=== PATIENT | female | born 1980 | race Caucasian/White ===

== ENCOUNTER 2025-02-20 14:44 | Outpatient (CLI) | payer BC, SELFPAY ==
[2025-02-23 03:51] LABS: HPV Source Cervix; HPV, High Risk by TMA Not Detected
== END 2025-02-20 14:45 | disposition home or self-care (01) ==
PROVIDERS: PCP Family Medicine; Visit Provider Physician Assistant
DX: Z12.4 Encounter for screening for malignant neoplasm of cervix (principal); Z11.51 Encounter for screening for human papillomavirus (HPV)
CPT/HCPCS: 87624; 87625; 88141; 88142

== ENCOUNTER 2025-03-01 07:32 | Outpatient (CLI) | payer BC, SELFPAY | END 2025-03-01 07:33 | disposition home or self-care (01) | LOC: NFLDREF 03-04 08:43 | PROVIDERS: PCP Family Medicine; Referring Provider Family Medicine; Visit Provider Physician Assistant | DX: F41.8 Other specified anxiety disorders (principal); Z13.6 Encounter for screening for cardiovascular disorders; Z13.1 Encounter for screening for diabetes mellitus | CPT/HCPCS: 80061; 82947; 84443 ==

== ENCOUNTER 2025-04-26 11:22 | Outpatient (CLI) | payer BC, SELFPAY ==
--- OUTSIDE RECORDS SUMMARY | 2025-04-23 12:00 | XMS_ITS | Encounter Summary ---
Author Organization [facility] er Address [address] [place] [address] Care Team Providers Care Hardware Technician Name Role Phone None, Pcp Primary Care Provider Unavailabl e Encounter Details Date Type Department Care Team (Late st Contact Info) Description 04/23/2025 12:00 PM CDT Office Visit [facility] Plastic Surgery [address] [place] [address] [phone] Genna Ashraf [address] [address] Symptomatic mammary hypertrophy (Primary Dx); Chronic upper back pain; Chronic pain of both shoulders; Chronic neck pain; Intertriginous dermatitis associated with moisture Social History Tobacco Use Types Packs/Day Years Used Date Smoking Tobacco: Never Smokeless Tobacco: Never Tobacco Cessation:Counseling Given: Not Answered Alcohol Use Standard Drinks/Week Comments Yes 0 (1 standard drink = 0.6 oz pur e alcohol) 5/wk Comments Unknown Sex and Gender Information Value Date Recorded Sex Assigned at Not on file Legal Sex Female 2:27 PM CDT Gender Identity Not on file Sexual Orientation Not on file documented as of this encounter Last Filed Vital Signs Vital Sign Reading Time Taken Comments Blood Pressure 132/96 04/23/2025 12:16 PM CDT Pulse 59 04/23/2025 12:16 PM CDT Temperature 36.9 C (98.4 F) 04/23/2025 12:16 PM CDT Respiratory Rate 16 04/23/2025 12:16 PM CDT Oxygen Saturation 96% 04/23/2025 12:16 PM CDT Inhaled Oxygen Concentration - - Weight 70.9 kg (156 lb 4.9 oz) 04/23/2025 12:16 PM CDT Height 152.4 cm (5') 04/23/2025 12:16 PM CDT Body Mass Index 30.53 04/23/2025 12:16 PM CDT documented in this encounter Progress Notes * Genna Ashraf, ALKSHMI - 04/23/2025 12:00 PM CDT PLASTIC SURGERY CONSULTATION REASON FOR CONSULTATION: Breast reduction. REFERRING PHYSICIAN: No ref. provider found S: BRIEF HISTORY: Kelly Villavicencio is a 44 y.o. female who presents by word of mouth for evaluationand management of symptomatic macromastia. The patient states her breasts are heavy and pendulous. She complains of a pulling breast pain at the end of the day. Over the last 20+ years, she reports increased problems with upper back pain, neck pain, and shoulder pain. The patient complains of chronic shoulder bra strap grooving. Neck and shoulder symptoms have been present for over 15 years; theyare present daily with no specific relieving factors. She rates her pain as a 7 out of 10 with activity. She describes the pain as constant, dull and aching. The patient reports limitation in her physical activity and pain with aerobic exercise secondary to the size of her breasts. 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 She has difficulty finding comfortable bras as the result of her breast volume. She has tried specialty bras withoutrelief. She often wears more than 1 bra when exercising. She states she gets rashes and skin breakdown from the excess moisture underneath her breasts. She uses Goldbond powder and deodorant to treatand prevent these rashes. She cleans and dries the area multiple times a day to prevent the skin irritation. She showers multiple times a day. She has tried taking Tylenol and ibuprofen for her back p ain. Patient states she takes these medications daily, and she has done so for over 1 year. She hasalso tried ice, a heating pad, IcyHot patches, a personal massager and stretching exercises to alleviate her symptoms. However, these measures have only temporarily relieved her pain. She saw a chiropractor for approximately 6 months to help with her upper neck, back, and shoulder pain, but did not find the sessions helpful. She receives massage therapy intermittently; however, the relief is only temporary. She states she has always had large breasts and she has been thinking ofhaving a breast reduction for several years. Patient lost approximately 14 pounds over the last couple of years through diet and exercise. Her breast volume did not change with weight loss. She is currently happy at her current weight and has maintained this weight for over 6 months. She currently wears a 38 DD cup size bra. She would like to be closer to a A/B cup. She denies any breast masses, change in nipple sensation, nipple drainage or abnormal mammograms. She is overdue for her screening mammogram. She has never had any previous breast surgeries. She doesnot have a family history of breast cancer. Denies any fevers or chills. No nausea, vomiting, or diarrhea. Denies any other recent hospitalizations or change in medical history. Social History Tobacco Use Smoking Status Never Smokeless Tobacco Never REVIEW OF SYSTEMS: Remaining systems negative unless otherwise stated. O: Vitals: 04/23/25 1216 BP: (!) 132/96 BP Location: Right arm Patient Position: Sitting BP Cuff Size: Adult Pulse: 59 Resp: 16 Temp: 36.9 ??C (98.4 ??F) TempSrc: Temporal SpO2: 96% Weight: 70.9 kg (156 lb 4.9 oz) Height: 1.524 m (5') Body surface area is 1.73 meters squared. Body mass index is 30.53 kg/m??. GENERAL: Alert and oriented, pleasant 44 y.o. female who is in no acute distress, well nourished. PSYCH: Alert and oriented x 3. Mood appropriate with good eye contact. EYES: PERRLA. EOMI. No scleral or conjunctival icterus. RESPIRATORY: No audible wheezes. No respiratory distress. ABDOMEN: Soft, non-tender, non-distended. EXTREMITIES: No edema, no cyanosis, no clubbing. Skin is warm, dry, and intact without rashes or lesions. NEUROLOGIC: Cranial nerves II through XII are grossly intact. No focal neurological deficits. BREASTS: Large, pendulous breasts with grade 3 ptosis. There are prominent bilateral shoulder grooves. Tightness in paraspinal muscles. Her left breast is larger than her right breast. Her notch to nipple distance is 31 cm on the right and 31.5 cm on the left. There is no discrete mass or nipple discharge. Nipples are sensate. There are chronic intertriginous cutaneous changes to the inframammaryfold. A: Encounter Diagnoses Name Primary? Symptomatic mammary hypertrophy Yes Chronic upper back pain Chronic pain of both shoulders Chronic neck pain Intertriginous dermatitis associated with moisture P: The patient is an otherwise healthy 44 y.o. woman with symptomatic bilateral macromastia. Based on her symptoms and the Schnur sliding scale, the patient fits criteria for a medically necessary bilateral breast reduction. She would benefit from a bilateral breast reduction to alleviate her chronic upper back, neck and shoulder pain. At her current weight, 440 grams of tissue would have to be removed from each breast in order for her procedure to be considered medically necessary by her insurance carrier. Patient is planning on a screening mammogram this . She will have the results released to the electronic medical record for our review. We discussed the indications, benefits, alternatives, risks and potential complications of a bilateral breast reduction procedure. We discussed the surgical procedure in detail, including scar placement, suture placement and anticipated immediate results. I spent a considerable amount of time explaining the risk of permanent loss of nipple sensation and/or the risk of partial or complete nipple necrosis. We discussed wound healing, wound care, her expected recovery and activity restrictions. Wediscussed how future weight loss may alter her body shape and potentially alter the results of her breast reduction leading to more surgery down the road. The patient asked multiple questions which were answered to her satisfaction. She stated understanding of our discussion. She would like to proceed with insurance pre-authorization for a bilateral reduction mammoplasty ([id number]). We will do so as soon as we have her mammogram results. We will contact the patient when we have received notification of the insurance carrier's decision. If approved,she will need to stop any medications that interfere with healing and/or causes bleeding/clotting issues (MVI, fish oil, herbal medications, aspirin, NSAIDs). Patient expressed understanding of the above and would like to proceed with surgery. Planned Excision weight: Left breast 440 grams; Right breast 440 grams Total time spent in patient care was over 45 minutes which included the pre- work, visit work, and post-visit work. Genna Easley MD Plastic and Reconstructive Surgery documented in this encounter Plan of Treatment Not on file documented as of this encounter Visit Diagnoses Diagnosis Symptomatic mammary hypertrophy- Primary Chronic upper back pain Chronic pain of both shoulders Chronic neck pain Cervicalgia Intertriginous dermatitis associated with moisture documented in this encounter Care Teams Hardware Technician Relationship Specialty Start Date End Date None, Pcp [address] [place] [phone] PCP - General Web Consultant 03/09/25 documented as of this encounter
--- NOTE | 2025-04-26 11:30 | CRLHL7_ITS ---
For Patients: As a result of the Century Cures Act, medical imaging exams and procedure reports are released immediately into your electronic medical record. You may view this report before your referring provider. If you have questions, please contact your health care provider. BILATERAL DIGITAL SCREENING MAMMOGRAM WITH COMPUTER-AIDED DETECTION AND TOMOSYNTHESIS CLINICAL HISTORY: Routine screening exam. COMPARISON: 12/26/2019, 11/02/2018 TECHNIQUE: Digital mammogram in CC and MLO projections including computer-aided detection (CAD). Tomosynthesis was used in this interpretation. BREAST COMPOSITION: The breasts are extremely dense, which lowers the sensitivity of mammography. FINDINGS: RIGHT Breast: Focal asymmetric density within the medial breast 8 cm from the nipple. LEFT Breast: No suspicious findings. IMPRESSION: RIGHT breast asymmetry/mass. RECOMMENDATIONS: Additional mammographic views of the RIGHT breast including 3D spot-compression CC/MLO. RIGHT breast ultrasound may also be required. The [facility] will contact the patient. A lay language report of this examination will be provided to the patient. BI-RADS Category 0: Incomplete: Need Additional Imaging Evaluation Dictated by Chadwick Campos MD @ 04/26/2025 12:38:36 PM Dictated by: Chadwick Campos MD @ 04/26/2025 12:38:40 (Electronically Signed)
--- OUTSIDE RECORDS SUMMARY | 2025-04-27 00:41 | XMS_ITS | Clinical Summary ---
Author Organization [facility] Address [address] [place] [address] Care Team Providers Care Weatherstrip Machine Operator Name Role Phone Clinic, No Pcp Or Primary Care Provider Unavaila ble Social History Tobacco Use Types Packs/Day Years Used Date Smoking Tobacco: Never Assessed Comments Unknown Sex and Gender Information Value Date Recorded Sex Assigned at Not on file Legal Sex Female 12:48 PM SEAMING INSPECTOR Gender Identity Not on file Sexual Orientation Not on file Plan of Treatment Health Maintenance Due Date Last Done Comments Tdap 1993 Depression screening for age 12+ 1994 HIV for age 15-65 1997 BMI (ht and wt on same day) for age 18+ 2000 Hepatitis C screening for ag e 18-79 2000 Hepatitis B series for 19+ ( 1 of 3 - 19+ 3-dose series) 2001 Tetanus booster 2002 Pap test for age 21-65 11/24/2019 7, 11/24/2016 COVID-19 vaccine series (2023- season) 2024 Influenza Vaccine (Season Ended) 2025 Pneumococcal series for age 6-49 Aged Out No longer eligible b ased on patient's age to complete this topic Procedures Procedure Name Priority Date/Time Associated Diagnosis Comments SYSTEMS MANAGEMENT CONSULTANT THIN PREP PAP SCREEN IMAGED Routine 11/24/2016 12:00 PM SEAMING INSPECTOR from Last 3 Months or Most Recently Relevant to Health Maintenance Results * SYSTEMS MANAGEMENT CONSULTANT THIN PREP PAP SCREEN IMAGED (11/24/2016 12:00 PM SEAMING INSPECTOR) Case Report Gynecologic Cytology Report Case: [id number] Authorizing Provider: Charisse Florentino PA-C Collected: 11/24/2016 1200 First Screen: Chelsy Cotton Received: 11/26/2016 0750 Specimen: SYSTEMS MANAGEMENT CONSULTANT ThinPrep Vial Screening, Cervical/Vaginal 11/30/2016 7:34 AM [facility] INTERPRETATION/ RESULT NEGATIVE FOR INTRAEPITHELIAL LESION OR MALIGNANCY (NIL) (none) 11/30/2016 7:34 AM SEAMING INSPECTOR [facility] at 0734 SEAMING INSPECTOR SPECIMEN ADEQUACY Satisfactory for evaluation Endocervical component present 11/30/2016 7:[address] [facility] HPV REQUEST HPV and PAP 11/30/2016 7:34 AM SEAMING INSPECTOR [facility] Date of LMP 05/27/2016 11/30/2016 7:34 AM SEAMING INSPECTOR [facility] Last Pap Date 11/30/2016 7:34 AM SEAMING INSPECTOR [facility] Comment:2013 Last Pap Result NIL 7 7:34 AM SEAMING INSPECTOR [facility] Menstrual Status Hormonally Suppressed 11/30/2016 7:[address] [facility] Automated Review Successful 11/30/2016 7:34 AM SEAMING INSPECTOR [facility] Comment:Specimen processed s uccessfully by automated entertainer or variety artist device, ThinPrep Imaging System, [employer] ANCILLARY TESTING SYSTEMS MANAGEMENT CONSULTANT HPV Ordered, Please see separate report 11/30/2016 7:34 AM [facility] Note The pap test is a screening technique, not a diagnostic procedure. It is used primarily to screen for squamous cancers and precursor lesions. Published studies have shown that it is subject to both false negative and false positive results. The pap test should not be used as the sole means to diagnose or exclude pre-malignant and malignant lesions. Interpreted at [facility] ([facility], [facility], [facility], [facility], [facility], [facility], [facility]) 11/30/2016 7:34 AM [facility] Other (Cervical/Vagina l) 11/24/2016 12:00 PM SEAMING INSPECTOR 11/26/2016 7:50 AM SEAMING INSPECTOR february Mishle [facility] Final R esult [facility] [address] [place] [address], [place] from Last 3 Months or Most Recently Relevant to Health Maintenance Insurance [facility] Care Teams Weatherstrip Machine Operator Relationship Specialty Start Date End Date Clinic, No Pcp Or . PCP - General 04/02/21
--- OUTSIDE RECORDS SUMMARY | 2025-04-27 00:41 | XMS_ITS | Clinical Summary ---
Author Organization [facility] er Address [address] [place] [address] Care Team Providers Care Laundromat Worker Name Role Phone None, Pcp Primary Care Provider Unavailabl e Allergies Active Allergy Reactions Criticality Noted Date Comments Dicloxacillin Rash 04/23/2025 Medications escitalopram (LEXAPRO) 10 MG tablet Take 1 tablet (10 mg total) by mouth 02/20/2025 Active Active Problems No known active problems Encounters Date Type Department Care Team Description 04/23/2025 12:00 PM CDT Office Visit [facility] Surgery [address] [place] [address] Genna Ashraf MBBS Symptomatic mammary hypertrophy (Primary Dx); Chronic upper back pain; Chronic pain of both shoulders; Chronic neck pain; Intertriginous dermatitis associated with moisture from Last 3 Months Social History Tobacco Use Types Packs/Day Years [...] on file Sexual Orientation Not on file Last Filed Vital Signs Vital Sign Reading [...] Mass Index 30.53 04/23/2025 12:16 PM CDT Plan of Treatment Health Maintenance Due Date Last Done Comments Mammogram 1982 Pap Smear 1982 COVID-19 Vaccine ( season) 2024 10/16/2021, 03/15/2021, 02/13/2021 Influenza Vaccine (Season Ended) 2025 12/21/2019, 08/19/2015 DTaP,Tdap,and Td Vaccines (11 - Td or Tdap) 02/20/2035 02/20/2025, 08/19/2015, 04/22/2007, Additional history exists HPV Vaccines Aged Out No longer eligi ble based on patient's age to complete this topic Pneumococcal Vaccine: Pediatrics (0 to 5 Years) and At-Risk Patients (6 to 49 Years) Aged Out No longer eligible based on patient's age to complete this topic Insurance [place] [address] [employer] Care Teams Laundromat Worker Relationship Specialty Start Date End Date None, Pcp [address] [place] [phone] PCP - General Scraper Meat 03/09/25
== END 2025-04-26 11:23 | disposition home or self-care (01) ==
PROVIDERS: PCP Family Medicine; Visit Provider Physician Assistant
DX: Z12.31 Encounter for screening mammogram for malignant neoplasm of breast (principal); R92.343 Mammographic extreme density, bilateral breasts; N63.10 Unspecified lump in the right breast, unspecified quadrant
CPT/HCPCS: 77063; 77067

== ENCOUNTER 2025-05-01 10:27 | Outpatient (CLI) | payer BC, SELFPAY ==
--- OUTSIDE RECORDS SUMMARY | 2025-04-23 12:00 | XMS_ITS | Encounter Summary ---
Author Organization [facility] er Address [address] [place] [address] Care Team Providers Care Onsite Health Coach Name Role Phone None, Pcp Primary Care Provider Unavailabl e Encounter Details Date Type Department Care Team (Late st Contact Info) Description 04/23/2025 12:00 PM CDT Office Visit [facility] Plastic Surgery [address] [place] [phone] Genna Ashraf [address] [address] Symptomatic mammary hypertrophy (Primary Dx); [...] this encounter Progress Notes * Genna Ashraf, LAKSHMI - 04/23/2025 12:00 PM CDT PLASTIC SURGERY [...] insurance pre-authorization for a bilateral reduction mammoplasty ([id number]). We will do so as soon as [...] moisture documented in this encounter Care Teams Onsite Health Coach Relationship Specialty Start Date End Date None, Pcp [address] [place] [phone] PCP - General Semaphore Operator 03/09/25 documented as of this encounter
--- NOTE | 2025-05-01 10:45 | CRLHL7_ITS ---
For Patients: As a result of the Cures Act, medical imaging exams and procedure reports are released immediately into your electronic medical record. You may view this report before your referring provider. If you have questions, please contact your health care provider. DIGITAL DIAGNOSTIC RIGHT MAMMOGRAM USING TOMOSYNTHESIS RIGHT BREAST ULTRASOUND CLINICAL HISTORY: RIGHT breast mass/asymmetry. COMPARISON: 04/26/2025. TECHNIQUE: Digital RIGHT mammogram in two projections. Tomosynthesis was used in this interpretation. Real-time ultrasound imaging of RIGHT breast with imaging documentation. Scanning was performed by both the technologist and the radiologist. BREAST COMPOSITION: The breasts are extremely dense, which lowers the sensitivity of mammography. FINDINGS: 3D spot compression CC/MLO RIGHT breast mammogram images submitted. No suspicious mass or architectural distortion. No suspicious calcifications. Targeted RIGHT breast ultrasound performed 1-4 o`clock 5-8 cm from the nipple. Normal dense fibroglandular tissue is present. No shadowing lesion. No fibrocystic change. IMPRESSION: No evidence of malignancy. RECOMMENDATIONS: Routine screening mammography. A lay language report of this examination will be provided to the patient. BI-RADS Category 2: Benign Dictated by Chadwick Campos MD @ 05/01/2025 11:44:10 AM jj/Dictated by: Chadwick Campos MD @ 05/01/2025 11:44:00 AM (Electronically Signed)
--- NOTE | 2025-05-01 11:15 | CRLHL7_ITS ---
For Patients: As a result of the Cures Act, medical imaging exams and procedure reports are released immediately into your electronic medical record. You may view this report before your referring provider. If you have questions, please contact your health care provider. SEE DIGITAL DIAGNOSTIC RIGHT MAMMOGRAM PERFORMED SAME DAY CRL:cody ross/Dictated by: Chadwick Campos MD @ 05/01/2025 11:44:00 AM (Electronically Signed)
--- OUTSIDE RECORDS SUMMARY | 2025-05-02 00:49 | XMS_ITS | Clinical Summary ---
Author Organization [facility] er Address [address] [place] [address] Care Team Providers Care Boilermaker'S Assistant Name Role Phone None, Pcp Primary Care Provider Unavailabl e Allergies Active Allergy Reactions Criticality Noted Date Comments Dicloxacillin Rash 04/23/2025 Medications escitalopram (LEXAPRO) 10 MG tablet Take 1 tablet (10 mg total) by mouth 02/20/2025 Active Active Problems No known active problems Encounters Date Type Department Care Team Description 04/23/2025 12:00 PM CDT Office Visit [facility] Pl[facility] [address] [place] [address] Genna Ashraf MBBS Symptomatic mammary hypertrophy (Primary [...] patient's age to complete this topic [place] [address] [place] [address] [employer] Care Teams Boilermaker'S Assistant Relationship Specialty Start Date End Date None, Pcp [address] [place] [phone] PCP - General Fitness Centre Manager 03/09/25
--- OUTSIDE RECORDS SUMMARY | 2025-05-02 00:49 | XMS_ITS | Clinical Summary ---
Author Organization [facility] Address [address] [place] [id number] Care Team Providers Care Nursing Department Chairperson Name Role Phone Clinic, No Pcp Or Primary Care Provider Unavaila ble Social History Tobacco Use Types Packs/Day Years Used Date Smoking Tobacco: Never Assessed Comments Unknown Sex and Gender Information Value Date Recorded Sex Assigned at Not on file Legal Sex Female 12:48 PM [facility] Gender Identity Not on file Sexual Orientation [...] 21-65 11/24/2019 7, 11/24/2016 COVID-19 vaccine series ( season) 2024 Influenza Vaccine (Season Ended) 2025 Pneumococcal series for age 6-49 Aged Out No longer eligible b ased on patient's age to complete this topic Procedures Procedure Name Priority Date/Time Associated Diagnosis Comments DENTAL CLAIMS PROCESSOR THIN PREP PAP SCREEN IMAGED Routine 11/24/2016 12:00 PM [facility] from Last 3 Months or Most Recently Relevant to Health Maintenance Results * DENTAL CLAIMS PROCESSOR THIN PREP PAP SCREEN IMAGED (11/24/2016 12:00 PM [facility]) Case Report Gynecologic Cytology Report Case: [id number] Authorizing Provider: Charisse Florentino PA-C Collected: 11/24/2016 1200 First Screen: Chelsy Cotton Received: 11/26/2016 0750 Specimen: DENTAL CLAIMS PROCESSOR ThinPrep Vial Screening, Cervical/Vaginal 11/30/2016 7:34 AM [facility] INTERPRETATION/ RESULT NEGATIVE FOR INTRAEPITHELIAL LESION OR MALIGNANCY (NIL) (none) 11/30/2016 7:34 AM [facility] Agent Partner [facility] ENTRAL LABORATORY at 0734 [facility] SPECIMEN ADEQUACY Satisfactory for evaluation Endocervical component present 11/30/2016 7:34 AM [facility] HPV REQUEST HPV and PAP 11/30/2016 7:34 AM [facility] Agent Partner [facility] Date of LMP 05/27/2016 11/30/2016 7:34 AM [facility] Agent Partner [facility] Last Pap Date 11/30/2016 7:34 AM [facility] Agent Partner [facility] LAB[facility] Comment:2013 Last Pap Result NIL 7 7:34 AM [facility] Agent Partner [facility] Menstrual Status Hormonally Suppressed 11/30/2016 7:34 AM [facility] Automated Review Successful 11/30/2016 7:34 AM [facility] Comment:Specimen processed s uccessfully by automated transport medic device, ThinPrep Imaging System, [employer] ANCILLARY TESTING DENTAL CLAIMS PROCESSOR HPV Ordered, Please see separate report 11/30/2016 7:34 AM [facility] Agent [facility] Note The pap test is a screening technique, not a diagnostic procedure. It is used primarily to screen for squamous cancers and precursor lesions. Published studies have shown that it is subject to both false negative and false positive results. The pap test should not be used as the sole means to diagnose or exclude pre-malignant and malignant lesions. [facility] at [facility] ([facility], [facility], [facility], [facility], [facility], [facility], Count Includes [facility]) 11/30/2016 7:34 AM [facility] Agent [facility] Other (Cervical/Vagina l) 11/24/2016 12:00 PM [facility] 11/26/2016 7:50 AM [facility] Mishel [facility] PATHOLOGY/CYTOLOGY Final R esult [facility] [address] [place] [address], [place] from Last 3 Months or Most Recently Relevant to Health Maintenance Insurance [facility] Care Teams Nursing Department Chairperson Relationship Specialty Start Date End Date Clinic, No Pcp Or . PCP - General 04/02/21
== END 2025-05-01 10:28 | disposition home or self-care (01) ==
LOC: MAMMO 10:29
PROVIDERS: PCP Family Medicine; Visit Provider Physician Assistant
DX: N63.10 Unspecified lump in the right breast, unspecified quadrant (principal); R92.8 Other abnormal and inconclusive findings on diagnostic imaging of breast
CPT/HCPCS: 76642; 77065; G0279